=== PATIENT | male | born 1980 | race Caucasian/White ===

== ENCOUNTER 2016-10-25 17:16 | Emergency (ER) | payer OTHER ==
[2016-10-25 18:44] LABS: BILIRUBIN NEGATIVE (NEGATIVE); BLOOD 1+ Ery/uL (NEGATIVE); CLARITY CLEAR (CLEAR); COLOR YELLOW (YELLOW); GLUCOSE (U) NORMAL (NORMAL); KETONE (U) NEGATIVE (NEGATIVE); LEUKOCYTES NEGATIVE Leu/uL (NEGATIVE); NITRITE NEGATIVE (NEGATIVE); PROTEIN NEGATIVE (NEGATIVE); SPECIFIC GRAVITY >=1.030 (1.001-1.030); UROBILINOGEN 0.2 mg/dL (0.2-1.0); pH 5.5 (5.0-9.0)
[2016-10-25 18:54] LABS: BACTERIA TRACE; URINARY RBC RARE
== END 2016-10-25 20:17 | disposition home or self-care (01) ==
LOC: FER 17:16
PROVIDERS: Nurse Practitioner Family
DX: N45.3 Epididymo-orchitis (principal); F17.210 Nicotine dependence, cigarettes, uncomplicated
CPT/HCPCS: 76870; 81001